=== PATIENT | female | born 1995 | race Two or more races ===

== ENCOUNTER 2022-10-11 20:02 | Emergency (ER) | payer SELFPAY ==
[~2022-10-11] VITALS: Ht 162.6 cm; Wt 56.8 kg
[2022-10-11 20:30] VITALS: BP 91/52; PULSE 115; RESP 18; O2SAT 96
[2022-10-11] MEDS ORDERED: SODIUM CHLORIDE 0.9% 1,000 ML IV ONE (20:30)
== END 2022-10-11 22:16 | disposition left against medical advice (07) ==
LOC: EDBD 20:02 → ER 20:02
DX: R53.1 Weakness (principal); E86.0 Dehydration; Z53.21 Procedure and treatment not carried out due to patient leaving prior to being seen by health care provider